=== PATIENT | female | born 1985 | race Hispanic/Latino ===

== ENCOUNTER 2017-08-28 21:21 | Emergency (ER) | payer MEDICAID ==
[~2017-08-28] VITALS: Ht 165.1 cm; Wt 95.2 kg
[2017-08-28] MEDS ORDERED: HYDROCHLOROTHIA25 MG PO (21:50)
[2017-08-28] MEDS ORDERED: GLUCOPHAGE500 MG PO (21:51)
== END 2017-08-28 23:08 | disposition home or self-care (01) ==
LOC: ED 21:21
PROC: 2W3DX1Z Immobilization of Left Lower Arm using Splint (ICD-10-PCS; principal; 2017-08-28)
DX: S60.212A Contusion of left wrist, initial encounter (principal); I10 Essential (primary) hypertension; E11.9 Type 2 diabetes mellitus without complications; Z79.84 Long term (current) use of oral hypoglycemic drugs; Z79.899 Other long term (current) drug therapy; W22.8XXA Striking against or struck by other objects, initial encounter
CPT/HCPCS: 29125; 73130; 99283

== ENCOUNTER 2018-06-05 12:45 | Emergency (ER) | payer OTHER ==
[~2018-06-05] VITALS: Ht 165.1 cm; Wt 85.7 kg
[~2018-06-05 12:45] MED LIST: GLUCOPHAGE500 MG PO; HYDROCHLOROTHIA25 MG PO; NORCO 5-325 TA1 EACH PO; PANTOPRAZOLE SO40 MG PO; ZOFRAN ODT4 MG PO
[2018-06-05] MEDS ORDERED: K-TAB ER20 MEQ PO (15:55)
[2018-06-05] MEDS ORDERED: PROTONIX40 MG PO (15:55)
== END 2018-06-05 16:00 | disposition home or self-care (01) ==
LOC: ED 12:45
DX: K21.9 Gastro-esophageal reflux disease without esophagitis (principal); E87.6 Hypokalemia; I10 Essential (primary) hypertension; E11.9 Type 2 diabetes mellitus without complications; Z91.041 Radiographic dye allergy status; Z88.8 Allergy status to other drugs, medicaments and biological substances; Z79.899 Other long term (current) drug therapy
CPT/HCPCS: 76705; 80053; 81001; 82150; 83690; 84703; 85025; 99284-25

== ENCOUNTER 2018-10-03 19:45 | Emergency (ER) | payer SELFPAY ==
[~2018-10-03] VITALS: Ht 165.1 cm; Wt 95.2 kg
--- OUTSIDE RECORDS SUMMARY | ~2018-10-03 | XMS | Clinical Summary ---
Demographics + + + | Address | [address] | | | [place] [address] | + + + | Home Phone | | + + + | Preferred Language | Unknown | + + + | Marital Status | Unknown | + + + | Faith Affiliation | Unknown | + + + | Race | Unknown | + + + | Ethnic Group | Unknown | + + + Author + + + | Author | [facility] | | | and [facility] | + + + | Organization | [facility] | | | and [facility] | + + + | Address | Unknown | + + + | Phone | Unavailable | + + + Care Team Providers + +------+ + | Care Stopperer Assembler Name | Role | Phone | + +------+ + PP | Unavailable | + +------+ + Allergies Not on File Medications Not on file Active Problems Not on file Social History + +-------+ +--------+------+ | Tobacco Use | Types | Packs/Day | Years | Date | | | | | Used | | + +-------+ +--------+------+ | Never Assessed | | | | | + +-------+ +--------+------+ + + + | Sex Assigned at | Date Recorded | | | | + + + | Not on file | | + + + + + + + | Job Start Date | Occupation | Industry | + + + + | Not on file | Not on file | Not on file | + + + + + + + + | Travel History | Travel Start | Travel End | + + + + + + | No recent travel history available. | + + Plan of Treatment + + + + + | Health Maintenance | Due Date | Last Done | Comments | + + + + + | Vaccine: | | | | | Dtap/Tdap/Td (1 - | 3 | | | | Tdap) | | | | + + + + + | Cervical Cancer | | | | | Screening (Pap) | 4 | | | + + + + + | Vaccine: Influenza | | | | | (Season Ended) | 9 | | | + + + + + Results Not on filefrom Last 3 Months"
--- OUTSIDE RECORDS SUMMARY | ~2018-10-03 | XMS | Clinical Summary ---
Demographics + + + | Address | [address] | | | [place] [address] | + + + | Home Phone | | + + + | Preferred Language | Unknown | + + + | Marital Status | Single | + + + | Jew Affiliation | CHR | + + + | Race | Unknown | + + + | Ethnic Group | or | + + + Author + + + | Author | [facility] | + + + | Organization | [facility] | + + + | Address | Unknown | + + + | Phone | Unavailable | + + + Support + + +---------+ + | Name | Relationship | Address | Phone | + + +---------+ + | Malia Stern | ECON | Unknown | | + + +---------+ + Care Team Providers + +------+ + | Care Zipper Sewing Machine Operator Name | Role | Phone | + +------+ + | Troy Curiel MD | PP | | + +------+ + Source Comments DEBBY is fully live on both [facility] and [facility] Allergies No Known Allergies Medications + + + +---------+------+------+-------+ | Medication | Sig | Dispensed | Refills | Star | End | Statu | | | | | | t | Date | s | | | | | | Date | | | + + + +---------+------+------+-------+ | clindamycin 300 mg | Take 1 Cap by mouth | 40 Cap | 0 | 12/0 | | Activ | | Oral Capsule | every six hours. | | | 2/20 | | e | | | | | | 10 | | | + + + +---------+------+------+-------+ Active Problems Not on file Social History + +-------+ +--------+------+ | Tobacco Use | Types | Packs/Day | Years | Date | | | | | Used | | + +-------+ +--------+------+ | Never Smoker | | | | | + +-------+ +--------+------+ + + +---------+ + | Alcohol Use | Drinks/Week | oz/Week | Comments | + + +---------+ + | No | | | | + + +---------+ + + + + | Sex Assigned at [...] recent travel history available. | + + Last Filed Vital Signs + + + + + | Vital Sign | Reading | Time Taken | Comments | + + + + + | Blood Pressure | 176/102 | 03/29/2010 5:36 PM | | | | | PST | | + + + + + | Pulse | 82 | 03/29/2010 5:36 PM | | | | | PST | | + + + + + | Temperature | 36.9 C (98.4 F) | 03/29/2010 5:36 PM | | | | | PST | | + + + + + | Respiratory Rate | 18 | 03/29/2010 5:36 PM | | | | | PST | | + + + + + | Oxygen Saturation | 100% | 03/29/2010 5:36 PM | | | | | PST | | + + + + + | Inhaled Oxygen | - | - | | | Concentration | | | | + + + + + | Weight | 104.3 kg (230 lb) | 03/29/2010 2:13 PM | | | | | PST | | + + + + + | Height | - | - | | + + + + + | Body Mass Index | - | - | | + + + + + Plan of Treatment + + + + + | Health Maintenance | Due Date | Last Done | Comments | + + + + + | Influenza (Flu) | | | | | vaccination (Season | 9 | | | | Ended) | | | | + + + + + | Pneumococcal | Aged Out | 09/28/2008 | No longer eligible | | vaccination | | | based on patient's | | | | | age to complete this | | | | | topic | + + + + + Results Not on filefrom Last 3 Months"
--- OUTSIDE RECORDS SUMMARY | ~2018-10-03 | XMS | Encounter Summary ---
Demographics + + + | Address | [address] | | | [place] [address] | + + + | Home Phone | | + + + | Preferred Language | Unknown | + + + | Marital Status | Single | + + + | Orthodoxy Affiliation | CHR | + + + | Race | Unknown | + + + | Ethnic Group | or | + + + Author + + + | Author | [facility] | + + + | Organization | [facility] | + + + | Address | Unknown | + + + | Phone | Unavailable | + + + Support + + +---------+ + | Name | Relationship | Address | Phone | + + +---------+ + | Malia Stern | ECON | Unknown | | + + +---------+ + Care Team Providers + +------+ + | Care National Account Executive Name | Role | Phone | + +------+ + | No Pcp Per Patient | PCP | Unavailable | + +------+ + Reason for Visit +--------+ + | Reason | Comments | +--------+ + | Rash | | +--------+ + Encounter Details +--------+ + + + + | Date | Type | Department | Care Team | Description | +--------+ + + + + | 03/29/ | Emergency | [facility] | Raphael López MD | | | 2009 | | Department [address] | [address] | | | | | [address] | [address] | | | | | [facility] | [place], [place] | | | | | [place] [address] | [address] | | | | | [phone] | [phone] | | | | | | | | +--------+ + + + + Social History + +-------+ +--------+------+ | Tobacco [...] recent travel history available. | + + documented as of this encounter Last Filed Vital Signs + + + [...] | | + + + + + documented in this encounter Discharge Instructions Instructions Diaan Dinh MD - 03/29/2010If the redness spreads, you have fevers or chill s please return. You should get re-checked by a doctor in 5 days. Thank you for choosing [facility] for your care. Sincerely, Diana Dinh MD Cellulitis Your caregiver has diagnosed you as having cellulitis. Cellulitis is an infection of the sk in and the tissue beneath it. It is caused by bacteria (germs) (usually staph or strep) that enter the body through cuts or sores. Cellulitis most commonly occurs in the arms or lower legs. It spreads by direct extension. If it is not treated, the bacteria may enter the bloo d stream and cause generalized infection associated with chills and fever. HOME CARE INSTRUCTIONS If you are given a prescription for antibiotics (medications which kill germs), take as directed until finished. If the infection is on your arm or leg, keep the limb elevated as able. Use a heating pad several times per day to relieve pain and encourage healing. Do not sl eep with heating pad. If you are diabetic, do not use a heating pad unless instructed to do so. See your caregiver for recheck of the infected site in 2 days, or sooner, if problems ar ise. Use acetaminophen (Tylenol) or ibuprofen (Advil or Motrin) as needed for relief of temperature, pain and discomfort. These may be taken together in usual doses. CALL YOUR caregiver IF: An oral temperature above 102 F (38.9 C) develops, or as your caregiver suggests, no t controlled by medication. The area of redness (inflammation) is spreading, or there are red streaks coming from th e infected site. The joint or bone underneath the infected skin becomes painful after the skin has healed . You develop new, unexplained symptoms (problems) such as pain or fever. GO TO THE EMERGENCY DEPARTMENT IMMEDIATELY IF You feel drowsy, lethargic, or have vomiting, diarrhea, or generalized malaise with muscle aches and pains. ExitCare Patient Information 2006 [employer]. documented in this encounter Medications at Time of Discharge + + + +---------+ + + | Medication | Sig | Dispensed | Refills | Start | End Date | | | | | | Date | | + + + +---------+ + + | clindamycin 300 mg | Take 1 Cap by mouth | 40 Cap | 0 | 03/29/20 | | | Oral Capsule | every six hours. | | | 10 | | + + + +---------+ + + documented as of this encounter Plan of Treatment Not on filedocumented as of this encounter Visit Diagnoses + + | Diagnosis | + + | Cellulitis Cellulitis and abscess of unspecified site | + + documented in this encounter Administered Medications + +--------+ +-------+------+------+ | Medication Order | MAR | Action | Dose | Rate | Site | | | Action | Date | | | | + +--------+ +-------+------+------+ | diphenhydrAMINE (aka BENADRYL) | Given | 03/29/20 | 50 mg | | | | capsule 50 mg 50 mg, oral, ONCE, | | 10 6:10 | | | | | 1 dose, [facility] 03/29/10 at 1815 | | PM PST | | | | + +--------+ +-------+------+------+ +---+---+ | | | +---+---+ documented in this encounter"
--- OUTSIDE RECORDS SUMMARY | ~2018-10-03 | XMS | Clinical Summary ---
Demographics + + + | Address | [address] | | | [place] [address] | + + + | Home Phone | | + + + | Preferred Language | Unknown | + + + | Marital Status | Unknown | + + + | Hindu Affiliation | Unknown | + + + | Race | Unknown | + + + | Ethnic Group | Unknown | + + + Author + + + | Author | [facility] | | | and [facility] | + + + | Organization | [facility] | | | and [facility] | + + + | Address | Unknown | + + + | Phone | Unavailable | + + + Care Team Providers + +------+ + | Care Senior Fund Accountant Name | Role | Phone | + [...]
--- OUTSIDE RECORDS SUMMARY | ~2018-10-03 | XMS | Clinical Summary ---
Demographics + + + | Address | [address] | | | [place] [address] | + + + | Home Phone | | + + + | Preferred Language | Unknown | + + + | Marital Status | | + + + | Druze Affiliation | Unknown | + + + | Race | Unknown | + + + | Ethnic Group | Unknown | + + + Author + + + | Author | [facility] | + + + | Organization | [facility] | + + + | Address | Unknown | + + + | Phone | Unavailable | + + + Support + + +---------+ + | Name | Relationship | Address | Phone | + + +---------+ + | Vibha Manzanares | ECON | Unknown | | + + +---------+ + Care Team Providers + +------+ + | Care Breaker Oiler Name | Role | Phone | + +------+ + | Troy Curiel MD | PP | | + +------+ + Allergies No Known Allergies Current Medications + + +-------+---------+------+------+-------+ | Prescription | Sig. | Disp. | Refills | Star | End | Statu | | | | | | t | Date | s | | | | | | Date | | | + + +-------+---------+------+------+-------+ | | Take 25 mg by mouth | | | | | Activ | | hydrochlorothiazide | daily. | | | | | e | | (HYDRODIURIL) 25 MG | | | | | | | | tablet | | | | | | | + + +-------+---------+------+------+-------+ | metFORMIN | Take 500 mg by mouth | | | | | Activ | | (GLUCOPHAGE) 500 MG | 2 (two) times daily | | | | | e | | tabletIndications: | with meals. | | | | | | | Polycystic Ovary | Indications: | | | | | | | Syndrome | Polycystic Ovary | | | | | | | | Syndrome | | | | | | + + +-------+---------+------+------+-------+ Active Problems + + + | Problem | Noted Date | + + + | Ovarian cyst | 11/14/2016 | + + + | Other and unspecified ovarian cyst | 09/09/2012 | + + + Family History + + +------+ + | Medical History | Relation | Name | Comments | + + +------+ + | Malig hypertherm | Neg Hx | | | + + +------+ + + +------+--------+ + | Relation | Name | Status | Comments | + +------+--------+ + | Father | | Alive | | + +------+--------+ + | Mother | | Alive | | + +------+--------+ + Social History + +-------+ +--------+------+ | Tobacco Use | Types | Packs/Day | Years | Date | | | | | Used | | + +-------+ +--------+------+ | Never Smoker | | | | | + +-------+ +--------+------+ + +---+---+---+ | Smokeless Tobacco: | | | | | Never Used | | | | + +---+---+---+ + + +---------+ + | Alcohol Use | Drinks/We | oz/Week | Comments | | | ek | | | + + +---------+ + | Yes | 1 Cans | 1.2 | occasional | | | of beer | | | | | 1 | | | | | Standard | | | | | drinks or | | | | | | | | | | equivalen | | | | | t | | | + + +---------+ + + + + | Sex Assigned at | Date Recorded | | | | + + + | Not on file | | + + + Last Filed Vital Signs + + + + | Vital Sign | Reading | Time Taken | + + + + | Blood Pressure | 145/78 | 01/07/2017 1:15 PM PDT | + + + + | Pulse | 64 | 01/07/2017 12:20 PM PDT | + + + + | Temperature | 36.6 C (97.8 F) | 01/07/2017 2:00 PM PDT | + + + + | Respiratory Rate | 18 | 01/07/2017 12:20 PM PDT | + + + + | Oxygen Saturation | 91% | 01/07/2017 2:00 PM PDT | + + + + | Inhaled Oxygen | - | - | | Concentration | | | + + + + | Weight | 117.8 kg (259 lb | 01/07/2017 8:31 AM PDT | | | 11.2 oz) | | + + + + | Height | 165.1 cm (5' 5") | 01/07/2017 8:31 AM PDT | + + + + | Body Mass Index | 43.22 | 01/07/2017 8:31 AM PDT | + + + + Plan of Treatment + + + + + | Health Maintenance | Due Date | Last Done | Comments | + + + + + | Cervical Cancer | | | | | Screening (Pap) | 4 | | | + + + + + | Vaccine: | | 09/28/2008 | | | Dtap/Tdap/Td (2 - | 9 | | | | Td) | | | | + + + + + | Vaccine: Influenza | | | | | (Season Ended) | 9 | | | + + + + + Results Not on filefrom Last 3 Months Insurance +---------+--------+ +------+-------+ + | Payer | Benefi | Subscriber | Type | Phone | Address | | | t Plan | ID | | | | | | / | | | | | | | Group | | | | | +---------+--------+ +------+-------+ + | [employer] | PREMER | [id number] | | | [address] [address] | | | A BLUE | 3 | | | [place] | | | CARD | | | | [phone] | +---------+--------+ +------+-------+ + + +--------+ +--------+ + + | Guarantor Name | Accoun | Relation to | Date | Phone | Billing Address | | | t Type | Patient | of | | | | | | | | | | + +--------+ +--------+ + + | CHIQUITA SOTO | Person | Self [birth year] Home: | [address] | | | al/Fam | | 1986 | [phone] | [place] [address] | | | [place] | | | [phone] | | + +--------+ +--------+ + +
--- OUTSIDE RECORDS SUMMARY | ~2018-10-03 | XMS | Clinical Summary ---
Demographics + + + | Address | [address] | | | [place] [address] | + + + | Home Phone | | + + + | Preferred Language | Unknown | + + + | Marital Status | | + + + | Catholic Affiliation | Unknown | + + + | Race | Unknown | + + + | Ethnic Group | Unknown | + + + Author + + + | Author | [facility] | + + + | Organization | [facility] | + + + | Address | Unknown | + + + | Phone | Unavailable | + + + Support + + +---------+ + | Name | Relationship | Address | Phone | + + +---------+ + | Vibha Manzanares | ECON | Unknown | | + + +---------+ + Care Team Providers + +------+ + | Care Motorboat Mechanic Inboard Name | Role | Phone | + [...] +------+-------+ + | [employer] | PREMER | [id number] | | | [address] [address] | | | A BLUE | 3 | | | [place] | | | CARD | | | | [phone] | +---------+--------+ +------+-------+ + + +--------+ +--------+ [...] | 1986 | [phone] | [place] [address] | | | [place] | | | [phone] | | + +--------+ +--------+ + +
--- OUTSIDE RECORDS SUMMARY | ~2018-10-03 | XMS | Clinical Summary ---
Demographics + + + | Address | [address] | | | [place] [address] | + + + | Home Phone | | + + + | Preferred Language | Unknown | + + + | Marital Status | Single | + + + | Episcopalian Affiliation | CHR | + + + [...] Team Providers + +------+ + | Care Manager Balance Name | Role | Phone | + +------+ + | Troy Curiel MD | PP | | + +------+ + Source Comments DEBBY is fully live on both [facility] and [facility]Patient.[facility] Allergies No Known Allergies Medications + + [...]
--- OUTSIDE RECORDS SUMMARY | ~2018-10-03 | XMS | Encounter Summary ---
Demographics + + + | Address | [address] | | | [place] [address] | + + + | Home Phone | | + + + | Preferred Language | Unknown | + + + | Marital Status | Single | + + + | Anglican Affiliation | CHR | + + + | Race | Unknown | + + + | Ethnic Group | or | + + + Author + + + | Author | [facility] | + + + | Organization | [facility] | + + + | Address | Unknown | + + + | Phone | Unavailable | + + + Support + + +---------+ + | Name | Relationship | Address | Phone | + + +---------+ + | Malia Stern | ECON | Unknown | | + + +---------+ + Care Team Providers + +------+ + | Care Brake Engineer Name | Role | Phone | + [...] + + | 03/29/ | Emergency | [facility] | Raphael López MD | | | 2009 | | Department [address] | [address] | | | | | [address] | [address] | | | | | [facility] | [place], [place] | | | | | [place] [address] | [address] | | | | | [phone] | [phone] | | | | | | | [...] documented in this encounter Discharge Instructions Instructions Diana Dinh MD - 03/29/2010If the redness spreads, you have fevers or chill s please return. You should get re-checked by a doctor in 5 days. Thank you for choosing [facility] for your care. Sincerely, Diana Dinh [...] aches and pains. ExitCare Patient Information 2006 [employer]. documented in this encounter Medications at Time [...] | | | | | 1 dose, [facility] 03/29/10 at 1815 | | PM PST | | | | + +--------+ +-------+------+------+ +---+---+ | | | +---+---+ documented in this encounter"
[~2018-10-03 19:45] MED LIST changes: +K-TAB ER20 MEQ PO; +PROTONIX40 MG PO
--- OUTSIDE RECORDS SUMMARY | 2018-10-03 19:48 | XMS ---
PreManage Notification: TANIA SOTO Security Forging Engineer Events No recent Security Events currently on file CRITERIA MET - [facility] - Has Care Guidelines CARE PROVIDERS Johan Taylor [facility] 06/09/2018-Current PHONE: Unknown Akiko has no Care Guidelines for this patient. Care History Medical/Surgical 06/09/2018 [facility] - Patient is currently established with [facility]. If patient is seen in the ED during business hours. Please contact [facility] at [facility]. Care Recommendation: This patient has had 5 or more Emergency Department visits in the last 12 months.\T\nbsp; Patient requires education on the scope and purpose of the ED as an acute care provider not a Primary Care Provider and should not be utilized for chronic conditions.\T\nbsp; These are guidelines and the provider should exercise clinical judgment when providing care. E.D. VISIT COUNT (12 MO.) 3 [facility] TOTAL 3 NOTE: Visits indicate total known visits. ED/UCC VISIT TRACKING (12 MO.) 10/03/2018 19:46 [facility] [place] TYPE: Emergency COMPLAINT: - LOWER BACK PAIN/SOB 06/05/2018 12:46 [facility] [place] TYPE: Emergency COMPLAINT: - R SIDE PAIN/NO INJURY DIAGNOSES: - Gastro-esophageal reflux disease without esophagitis - Other termite control service representative (current) drug therapy - Allergy status to other drugs, medicaments and biological substances status - Essential (primary) hypertension - Type 2 diabetes mellitus without complications - Radiographic dye allergy status - Right upper quadrant pain - Hypokalemia 03/16/2018 13:[address] [facility] [place] TYPE: Emergency COMPLAINT: - ABD PAIN DIAGNOSES: - Essential (primary) hypertension - penitentiary (current) use of oral hypoglycemic drugs - Type 2 diabetes mellitus without complications - Epigastric pain - Other termite control service representative (current) drug therapy - Gastritis, unspecified, without bleeding INPATIENT VISIT TRACKING (12 MO.) No inpatient visits to display in this time frame [id number]
[2018-10-03] MEDS ORDERED: METFORMIN HCL1000 MG PO (20:01)
[2018-10-03] MEDS ORDERED: HYDROCHLOROTHIA50 MG PO (20:01)
== END 2018-10-03 21:26 | disposition home or self-care (01) ==
LOC: ED 19:45
DX: O99.611 Diseases of the digestive system complicating pregnancy, first trimester (principal); R14.0 Abdominal distension (gaseous); M54.5 Low back pain; I10 Essential (primary) hypertension; Z91.041 Radiographic dye allergy status; Z88.8 Allergy status to other drugs, medicaments and biological substances; Z79.899 Other long term (current) drug therapy; Z3A.01 Less than 8 weeks gestation of pregnancy
CPT/HCPCS: 81001; 84703; 99283